=== PATIENT | male | born 1995 | race Caucasian/White ===

== ENCOUNTER 2017-07-17 16:05 | Emergency (ER) | payer OTHER ==
[~2017-07-17] VITALS: Ht 172.7 cm; Wt 61.3 kg
[2017-07-17 16:13] VITALS: TEMP 36.5; Ht 172.7 cm; Wt 61.3 kg
--- NOTE | 2017-07-17 17:02 | EMERGENCY ROOM VISIT NOTE ---
ED Visit Note First contact with patient: 16:17 CHIEF COMPLAINT: Fall 3 days ago, right leg injury HISTORY OF PRESENT ILLNESS: Patient is a healthy 21-year-old male who presents emergency department for evaluation of his right lower leg. He was running late for class, was running and tripped on uneven pavement. He landed on the flexed right knee, sustaining an abrasion to the anterior knee, and the top of his right foot, over his second third and fourth toes. Patient states that he was able to get up, and on to class. He has been cleaning the abrasions with hydrogen peroxide. He applied antibiotic ointment for one day. He wanted to come in and have the wounds evaluated to make sure that they're not infected. He took a prescription painkiller from [facility]. He denies any pain. REVIEW OF SYSTEMS: Review of systems as per HPI. All other systems reviewed were negative. At least 6 systems reviewed. PMH: Electronic medical records are reviewed and summarized as above/below. See Problem List. Tetanus is up-to-date. SOCIAL HISTORY: Patient lives at home. 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 PHYSICAL EXAM: Vital Signs: Reviewed Nurse's notes. MENTAL STATUS: Alert, oriented, and cooperative. MUSCULOSKELETAL: Examination of the right lower leg show a superficial abrasion over the anterior right knee. He also has several smaller abrasions over the dorsal aspect of the right second third and fourth toes. The second toe is circumferentially swollen, ecchymotic, slightly tender , and has decreased range of motion. Remainder of the foot is nontender. No ankle pain. No knee pain. Range of motion is full. Right lower extremity is neurovascularly intact. Abrasions are well healing without signs of infection. EMERGENCY DEPARTMENT COURSE: The patient was seen and examined as above. Wound care measures were discussed. He was reassured that his abrasions appear to be healing well. After further discussion with the patient he would like to have the toe x-rayed. There is no evidence for fracture. Patient was placed in a postoperative shoe and given crutches. Conservative care measures were discussed. He does not have any other joint pain to suspect patellar fracture, ankle sprain or metatarsal fracture. Medication reconciliation: I attest that I have personally reviewed the patient' s current medication list. Blood pressure screening : Patient was found to have normal blood pressure on screening and does not require follow-up. Current/Historical Medications No Active Prescriptions or Reported Meds Allergies Coded Allergies: No Known Allergies (Unverified , 07/17/17) Vital Signs Date Time Temp Pulse Resp B/P (MAP) Pulse Ox O2 Delivery O2 Flow Rate FiO2 07/17/17 17:11 59 20 133/82 99 07/17/17 16:13 36.5 59 20 133/82 99 Room Air Departure Information Impression Primary Impression: Multiple abrasions Additional Impression: Injury of toe on right foot Prescriptions No Active Prescriptions or Reported Meds Referrals [facility] (PCP) Patient Instructions My [facility] Additional Instructions Ibuprofen(Motrin, Advil) may be used for fever or pain. Use 600mg every six hours as needed. Take with food. Avoid using more than 2400mg in a 24 hour period. Do not use 2400mg per day for more than three consecutive days without physician direction. Prolonged inappropriate use can lead to stomach upset or ulcers. This medication can be taken if you need to drive, work, or perform activities which may be dangerous when taking narcotic pain medication. (AND/OR) Acetaminophen(Tylenol) may be used for fever or pain. Use 1000mg every six hours as needed. Avoid using more than 3000mg in a 24 hour period. This medication can be taken if you need to drive, work, or perform activities which may be dangerous when taking narcotic pain medication. Use the postoperative shoe as instructed. May return to a normal shoe as your symptoms allow. Rest and elevate your injury. Wash wounds gently with mild soap and water. Cover with a bandage only as needed. Continue current medications. Problem Qualifiers
[2017-07-17 17:11] VITALS: BP 133/82; PULSE 59; O2SAT 99
--- NOTE | 2017-07-17 17:11 | DIAGNOSTIC IMAGING REPORT ---
RIGHT SECOND TOE 3 VIEWS CLINICAL HISTORY: Second toe injury. FINDINGS: 3 views of the right second toe are obtained. No prior studies are available for comparison at the time of dictation. The skeletal structures are well mineralized. There is no radiographic evidence of fracture. The second metatarsophalangeal and interphalangeal joints are preserved. The overlying soft tissues are normal as imaged. IMPRESSION: There is no radiographic evidence of right second toe fracture. Electronically signed by: Isaias Vela M.D. 07/17/2017 5:09 PM Dictated Date/Time: 07/17/2017 5:08 PM
== END 2017-07-17 17:12 | disposition home or self-care (01) ==
LOC: C.EDB 16:10 → C.EDD 17:12
DX: S80.211A Abrasion, right knee, initial encounter (principal); S90.811A Abrasion, right foot, initial encounter; S90.414A Abrasion, right lesser toe(s), initial encounter; W18.09XA Striking against other object with subsequent fall, initial encounter; Y93.02 Activity, running; Y99.8 Other external cause status